=== PATIENT | female | born 1975 | race Caucasian/White ===

== ENCOUNTER 2017-04-18 15:12 | Emergency (ER) | payer OTHER ==
[~2017-04-18] VITALS: Ht 175.3 cm; Wt 62.1 kg
--- NOTE | 2017-04-18 18:20 | NUR ---
Pt was not found in ER waiting room.
--- NOTE | 2017-04-18 20:59 | NUR ---
Patient discharged to home in stable conditon. Written and verbal after care instructions given. Patient verbalizes understanding of instructions.
== END 2017-04-18 21:00 | disposition home or self-care (01) ==
LOC: ER 15:13
DX: S86.911A Strain of unspecified muscle(s) and tendon(s) at lower leg level, right leg, initial encounter (principal); M79.661 Pain in right lower leg; W22.8XXA Striking against or struck by other objects, initial encounter; Y93.89 Activity, other specified; Y92.89 Other specified places as the place of occurrence of the external cause; Y99.8 Other external cause status
CPT/HCPCS: 29515; 73600; 93971; 99284; A4663

== ENCOUNTER 2018-12-03 10:00 | Emergency (ER) | payer OTHER ==
[~2018-12-03] VITALS: Ht 175.3 cm; Wt 65.8 kg
--- NOTE | 2018-12-03 10:16 | NUR ---
Patient discharged to home in stable conditon. Written and verbal after care instructions given. Patient verbalizes understanding of instructions.
== END 2018-12-03 10:18 | disposition home or self-care (01) ==
LOC: ER 10:00
DX: K02.9 Dental caries, unspecified (principal)
CPT/HCPCS: A4663

== ENCOUNTER 2019-01-02 06:29 | Emergency (ER) | payer OTHER ==
[~2019-01-02] VITALS: Ht 175.3 cm; Wt 63.5 kg
[2019-01-02] MEDS ORDERED: CEFTRIAXONE 1 G VIAL IM ONE (06:45)
[2019-01-02] MEDS ORDERED: CEFTRIAXONE 1 G VIAL ONE (06:51)
--- NOTE | 2019-01-02 06:58 | NUR ---
PT ABLE TO TOLERATE ABX MEDS ORDERED. PT WITH MARKED SWELLING ON LEFT SIDE OF FACE ABLE TO SPEAK CLEAR AND COMPLETE SENTENCES
[2019-01-02 07:03] VITALS: BP 107/75
== END 2019-01-02 07:04 | disposition home or self-care (01) ==
LOC: ER 06:33
DX: K02.9 Dental caries, unspecified (principal)
CPT/HCPCS: 96372; 99283; J0696; J3490; A4663